=== PATIENT | female | born 1950 | race Caucasian/White ===

== ENCOUNTER 2016-11-30 03:33 | Inpatient (IN) | payer OTHER ==
[~2016-11-30] VITALS: Ht 167.6 cm; Wt 98.0 kg
[~2016-11-30 03:33] MED LIST: ADVAIR HFA 230-12 GM INH; ASPIRIN325 M2 PO; BUTRANS1 EAC2 TOP; COLACE100 M1 PO; DILAUDID2 M1 PO; ESCITALOPRAM OX10 MG PO; HYDROCHLOROTH12.5 M2 PO; MAXALT10 M1 PO; MIRALAX17 G1 PO; MS CONTIN15 M2 PO; ONDANSETRON HCL8 MG PO; OXYCODONE HCL15 M1 PO; ROXICODONE15 M1 PO; TOPAMAX100 M1 PO; XANAX0.25 M1 PO; [UNRECOGNIZED DRUG - OTHER] PO
--- NOTE | 2016-11-30 15:25 | Admission Core Measures ---
Admission Meds I reviewed the following Meds: Current Medications Sig/Jericho Start time Last Medication Dose Stop Time Status Admin Acetaminophen 975 MG ONCE 11/30 0000 NR (Tylenol) 11/30 2358 Alprazolam 0.125 MG DAILY NEEDED PRN 11/30 1500 UNVr (Xanax) 12/07 1459 Budesonide/ 2 PUF BID 11/30 2199 UNVr Formoterol Fumarate (Symbicort) Cefazolin Sodium 2,000 MG ONCE 11/30 0000 NR (Kefzol-Ancef Inj) 11/30 2358 Duloxetine HCl 40 MG DAILY 12/01 1000 UNVr (Cymbalta) Escitalopram Oxalate 10 MG DAILY 12/01 1000 UNVr (Lexapro) Hydrochlorothiazide 12.5 MG DAILY 12/01 1000 UNVr (Hydrodiuril) Oxycodone HCl 10 MG ONCE 11/30 0000 NR (Roxicodone) 11/30 2358 Ropivacaine 500 ML ONCE ONE 11/30 1430 AC (NAROPIN) 12/02 1629 ON-Q Ball 1 BAG Sumatriptan Succinate 25 MG DAILY NEEDED 11/30 1500 UNVr (Imitrex TAB) Topiramate 200 MG BID 11/30 2199 UNVr (Topamax) Acute Coronary Syndrome Inclusion Criteria ACS Diagnosis No Inpatient Core Measures LDL Reminder: If No, please order W/I first 24hr of stay Congestive Heart Failure Inclusion Criteria CHF Diagnosis No Cerebrovascular accident Inclusion Criteria CVA/TIA Diagnosis No Inpatient Core Measures Bedside Swallow Eval Reminder: If BSE failed, place ST order Antithrombotic Reminder: Order Antithrombotic Medication by end of day 2 Antithrombotic Reminder: Document Reason Antithrombotic Not ordered by end of day 2 AFIB/Flutter Reminder: If Present, add to problem list AFIB/Flutter Reminder: Order Anticoag Medication for pts with AFIB/Flutter Atherosclerosis Reminder: If Present, add to problem list LDL Reminder: If No, please order W/I first 24hr of stay PT Order Reminder: If No, please order Venous thromboembolism Inpatient Core Measures VTE Risk Factors: Age > 40, Surgery No [facility] VTE prophylaxis d/t No contraindications No VTE Pharm Prophylaxis d/t No contraindications Inclusion Criteria - Per Current guidelines, there needs to be overlap - treatment for the first 5 days of Warfarin therapy. - Parenteral Anticoagulation (IV or SC) needs to be - given along with Warfarin therapy. VTE Diagnosis No VTE Type NONE VTE Confirmed by (Test) NONE Problem List As ranked by this Provider includes Assessment & Plan 1. Unilateral primary osteoarthritis, right knee HOME MEDS Home Med List Alprazolam (Xanax) 0.25 MG TABLET 0.5 TAB PO PRN ANXIETY (Reported) Buprenorphine (Butrans) 1 EACH PATCH.TDWK 1 PAT TOP QW PAIN (Reported) Duloxetine HCl (Irenka) 40 MG CAPSULE.DR 60 MG PO DAILY MIGRAINES (Reported) Escitalopram Oxalate 10 MG TABLET 1 TAB PO DAILY MIGRAINES (Reported) Fluticasone Propionate/Salme (Advair Hfa 230-21 Mcg Inhaler) 12 GM HFA.AER.AD 1 PUFF INH PRN ASTHMA (Reported) Hydrochlorothiazide 12.5 MG TABLET 1 TAB PO DAILY BP (Reported) Oxycodone HCl 15 MG TABLET 1 TAB PO Q6H PAIN (Reported) Rizatriptan Benzoate (Maxalt) 10 MG TABLET 1 TAB PO PRN MIGRAINES (Reported) Topiramate (Topamax) 100 MG TABLET 2 TAB PO BID MIGRAINE (Reported)
[2016-11-30] MEDS ORDERED: MIRALAX17 G1 PO (15:29)
[2016-11-30] MEDS ORDERED: MS CONTIN30 M1 PO (15:29)
[2016-11-30] MEDS ORDERED: DILAUDID2 M1 PO (15:29)
[2016-11-30] MEDS ORDERED: COLACE100 M1 PO (15:29)
[2016-11-30] MEDS ORDERED: ASPIRIN EC325 M2 PO (15:29)
--- NOTE | 2016-11-30 15:33 | Patient Discharge Instructions ---
Discharge Instructions General Discharge Information You were seen/treated for: Right knee pain related to unilateral primary osteoarthritis You had these procedures: Right total knee replacment Watch for these problems: Increasing pain despite the use of pain medication Increasing redness, warmth or swelling Drainage of any type from incision Inability to bear weight on operative leg Persistent nausea and vomiting Fever greater than 101.5 degrees Do not soak the wound: Yes No bath, but you may shower: Yes Other wound care: Please keep wound clean and dry. No ointments or lotions of any type on or near incision at any time. No exceptions. Your dressing will be changed by your nurse on the second day after your surgery. Daily dry dressing changes are recommended each day thereafter. Do not soak your wound in a bath at any time until otherwise indicated by your surgeon. You may shower, please dry wound immediately after shower with a clean towel. Special Instructions: Aspirin: You are taking this medication to help prevent blood clot formation. Please take with food to protect your stomach lining. Please take as directed. Constipation: Pain medication can cause constipation. Dr. Espino has recommended that you take Colace and miralax each day. You may discontinue this medication if you develop loose stool or diarrhea. If you wish to continue this medication, it is available over the counter. If you are unable to move your bowels after several days, if you are unable to pass gas and are developing bloating, nausea, or vomiting as a result, please contact your doctor. Diet Continue normal diet: Yes Recommended Diet: Regular Activity Full Activity/No Limits: No Activity Self Limited: Yes Pounds, do NOT lift more than: 10 Activity Limited to: Weight bear as tolerated Acute Coronary Syndrome Inclusion Criteria At DC or during hospital stay patient has or had the following: ACS DIAGNOSIS No Discharge Core Measures Meds if any: Prescribed or Continued at Discharge Meds if any: NOT Prescribed or Continued at Discharge Congestive Heart Failure Inclusion Criteria At DC or during hospital stay patient has or had the following: CHF DIAGNOSIS No Discharge Core Measures Meds if any: Prescribed or Continued at Discharge Meds if any: NOT Prescribed or Continued at Discharge Cerebrovascular accident Inclusion Criteria At DC or during hospital stay patient has or had the following: CVA/TIA Diagnosis No Discharge Core Measures Meds if any: Prescribed or Continued at Discharge Meds if any: NOT Prescribed or Continued at Discharge Venous thromboembolism Inclusion Criteria VTE Diagnosis No VTE Type NONE VTE Confirmed by (Test) NONE Discharge Core Measures - Per Current guidelines, there needs to be overlap - treatment for the first 5 days of Warfarin therapy. - If discharged on Warfarin prior to 5 days of - overlap therapy, the patient will need to be - assessed for post discharge needs including - *Post discharge parental anticoagulation - *Warfarin and/or parental anticoagulation education - *Follow up date to check INR post discharge At least 5 days overlap therapy as Inpatient No Meds if any: Prescribed or Continued at Discharge Note: Overlap Therapy is Warfarin and Anticoagulant Meds if any: NOT Prescribed or Continued at Discharge
--- NOTE | 2016-11-30 15:53 | Surgical Discharge Summary ---
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 Daughter What is Your Primary Language? Portuguese Review of Systems: See H&P Hospital Course Course Attending Physician: JOEL JIMENEZ MD Primary Care Physician: SHIRA SIMON,[facility] Course: Patient was admitted to the hospital for an elective total joint replacement. The procedure was tolerated well and patient was transferred to a general surgical floor. Diet was advanced and tolerated, and the patient voided spontaneously. The patient was evaluated and treated by physical therapy. She had complaints of pain to her leg and her medication was reviewed and clarified with her PCP. At the time of hospital discharge, the vital signs were stable, neurovascular status was intact, and pain was controlled with the use of oral pain medications. Allergies: Coded Allergies: Sulfa (Sulfonamide Antibiotics) (Severe, HIVES 11/24/16) furosemide (From LASIX) (Severe, HIVES 11/24/16) ibuprofen (Severe, HIVES 11/24/16) pregabalin (From Lyrica) (Severe, HIVES 11/24/16) codeine (HYPOTENSION 11/24/16) ginseng (BLEEDING 11/24/16) Disposition Summary Disposition Principal Diagnosis: Right knee unilateral primary osteoarthritis Additional Diagnosis: None Discharge Disposition: home health services Discharge Instructions General Discharge Information Code Status: Full Code Patient's Diet: Regular, advance as tolerated Patient's Activity: WBAT Follow-Up Instructions/Appts: Follow up with Dr. Jimenez in 6 weeks from date of surgery. Please call his office to arrange and/or confirm this appointment. Medications at Discharge Discharge Medications: Continue taking these medications: Fluticasone Propionate/Salme (Advair Hfa 230-21 Mcg Inhaler) 12 GM HFA.AER.AD 1 PUFF Inhale through mouth as needed for ASTHMA Comments: Last Taken: 01/28 Time: 10:20 AM Alprazolam (Xanax) 0.25 MG TABLET 0.5 Tablet ORAL as needed for ANXIETY Comments: Last Taken: 01/28 Time: 8:20 AM Buprenorphine (Butrans) 1 EACH PATCH.TDWK 1 Patch On the skin Once a Week Comments: DID NOT RECEIVE Duloxetine HCl (Irenka) 40 MG CAPSULE.DR 60 Milligram ORAL DAILY Comments: Last Taken: 01/28 Time: 10:00 AM Escitalopram Oxalate (Escitalopram Oxalate) 10 MG TABLET 1 Tablet ORAL DAILY Comments: Last Taken: 01/28 Time: 10:20 AM Hydrochlorothiazide (Hydrochlorothiazide) 12.5 MG TABLET 1 Tablet ORAL DAILY Comments: Last Taken: 01/28 Time: 10:20 AM Oxycodone HCl (Oxycodone HCl) 15 MG TABLET 1 Tablet ORAL EVERY 4-6 HOURS NEEDED Comments: Last Taken: 01/28 Time: 10:20 AM Rizatriptan Benzoate (Maxalt) 10 MG TABLET 1 Tablet ORAL as needed for MIGRAINES Comments: DID NOT RECEIVE Topiramate (Topamax) 100 MG TABLET 2 Tablet ORAL TWICE DAILY Comments: Last Taken: 01/28 Time: 11:00 AM Start taking the following new medications: Aspirin (Ecotrin*) 325 MG TABLET.DR 1 Tablet ORAL TWICE DAILY Qty = 60 No Refills Docusate Sodium (Colace) 100 MG CAPSULE 1 Capsule ORAL TWICE DAILY Qty = 14 No Refills Instructions: DISCONTINUE USE IF YOU DEVELOP LOOSE STOOL OR DIARRHEA Polyethylene Glycol 3350 (Miralax) 17 GRAM POWD.PACK 1 Packet ORAL DAILY Qty = 7 No Refills Instructions: dissolve in water, DISCONTINUE USE IF YOU DEVELOP LOOSE STOOL OR DIARRHEA
--- NOTE | 2016-11-30 17:27 | PN- Orthopedic ---
Subjective Subjective: POST-OP NOTE: No complaints. Pain controlled. Still has some numbness of her lower leg. Not yet out of bed. Denies dizziness. No shortness of breath. No chest pains. Objective Vital Signs and I&Os pacu flowsheet reviewed (vss), u/o adequate Physical Exam: General - alert & oriented. sleepy. comfortable Lungs - clear bilaterally. no w/r/r. Cardiac - s1s2. reg. Abdomen - soft. nontender. - shepherd draining clear, yellow urine. Extremities - warm bilaterally. no c/c/e. right leg dressing c/d/i. sensation grossly intact with movement returning in right lower leg. +df/pf Current Medications: Current Medications Sig/Jericho Start time Last Medication Dose Route Stop Time Status Admin Acetaminophen 0 .STK-MED ONE 11/30 1220 DC PO Acetaminophen 975 MG ONCE 11/30 0000 NR PO 11/30 2359 Alprazolam 0.125 MG DAILY NEEDED PRN 11/30 1500 AC PO 12/07 1459 Budesonide/ 2 PUF BID 11/30 2200 AC Formoterol Fumarate INH Cefazolin Sodium 2,000 MG ONCE 11/30 0000 NR IV 11/30 2359 Duloxetine HCl 40 MG DAILY 12/01 1000 AC PO Escitalopram Oxalate 10 MG DAILY 12/01 1000 AC PO Hydrochlorothiazide 12.5 MG DAILY 12/01 1000 AC PO Oxycodone HCl 0 .STK-MED ONE 11/30 1220 DC PO Oxycodone HCl 10 MG ONCE 11/30 0000 NR PO 11/30 2359 Ropivacaine 500 ML ONCE ONE 11/30 1430 AC ON-Q Ball 1 BAG INJ 12/02 1629 Sumatriptan Succinate 25 MG DAILY NEEDED 11/30 1500 AC PO Topiramate 200 MG BID 11/30 2200 AC PO Assessment/Plan Assessment/Plan This 65 year old female with hx asthma, anemia, depression, chronic pain, hx seizures, aneesh (cpap), depression, is POD#0 s/p right total knee replacement for primary osteoarthritis advance diet as tolerated pain control as ordered asa 325mg bid - dvt capo-operative ancef x 2 doses d/c shepherd in am f/u am labs PT eval in am home meds ordered TRC / IS / cpap at night dressing change and on q removal POD#2 will d/w Core Measures/Miscellaneous Venous Thromboembolism VTE Risk Factors: Age > 40, Obesity, Surgery VTE Contraindications: No Contraindications VTE Diagnosis: No VTE Type: NONE VTE Confirmed by (Test): NONE Beta Jeff Is Beta Jeff a Home Med? No Antibiotics Is Patient on Antibiotics? Yes If Yes: prophylaxis
[2016-11-30 18:10] VITALS: BP 120/80
--- NOTE | 2016-11-30 19:02 | Operative Report ---
Operative/Inv Procedure Report Surgery Date: 11/30/16 Name of Procedure: 1. Right total knee replacement 2. Left knee cortisone injection Pre-Operative Diagnosis: Primary bilateral knee DJD Post-Operative Diagnosis: Same Estimated Blood Loss: 50ml to 100ml Surgeon/Personal Injury Law Specialist: TONY SIMON,JOEL Small Anesthesia: block Operative/Procedure Note Note: Description of Procedure: The patient was taken to the operating room and positively identified. After induction of spinal anesthesia and administration of appropriate pre-operative antibiotics, the patient was positioned supine on the operating room table and all bony prominences were well padded. The left knee was prepped sterilely and injected with a mixture of 2 mL of Depo- Medrol and 6 mL of half percent Marcaine. A Band-Aid was placed over the injection site. Attention was then turned to the right lower extremity A well-padded pneumatic tourniquet was placed on the right upper thigh. After performing a surgical timeout, the right lower extremity was prepped and draped in the usual sterile fashion. After exsanguination with Esmarch the tourniquet was inflated to 250mm of mercury. A standard medial parapatellar approach was made to the knee. This was carried down through skin and subcutaneous tissue to the level of the fascia. Meticulous hemostasis was maintained with Bovie electrocautery. The extensor mechanism and patellar retinaculum were opened sharply and the patella was everted. The infrapatellar fat was resected in order to improve exposure. Osteophytes were trimmed from the patella and femoral condyles and the patella was re-everted and tucked laterally. A medial release was performed and the cruciate ligaments were resected. The tibia was then subluxed anteriorly. Utilizing the appropriate extra-medullary guide, the proximal tibia was trimmed perpendicular to the long axis of the tibial shaft. Attention was then turned to the femur. After opening the medullary canal, the distal femoral cut was made in 6 degrees of valgus utilizing the appropriate intra-medullary guide. The extension gap was checked and found to be appropriate. The femur was then sized and the remainder of the femoral cuts were made with a size #4 4-in-1 femoral cutting guide. The flexion gap was checked and found to be symmetric and appropriate. The knee was then trialed with a size #4 femoral component, a size 5 tibial component and a size 13 mm polyethylene insert. The patella was trimmed to accept an A 32 patella. This yielded excellent range of motion, stability and patellar tracking. All trial components were removed and the knee was copiously irrigated with sterile saline. All components were cemented into place with [place] Simplex cement. All the components were of the [employer] Triathlon knee system of the above stated sizes. The knee was again irrigated after cementation. The extensor mechanism and patellar retinaculum were repaired using interrupted #1 vicryl suture. The skin was re-approximated with 2-0 vicryl and closed with melissa. A sterile dressing was applied, the tourniquet was deflated, the patient was awakened and taken to the recovery room in satisfactory condition.
--- NOTE | 2016-11-30 20:31 | NUR ---
1809 PATIENT ARRIVED TO FLOOR ALERT AND ORIENTED X 3. ON ROOM AIR. STATES MILDLY SHORT OF BREATH VITAL SIGNS STABLE. DENIES CHEST PAIN. + PULSES. HX PERIPHERAL NEUROPATHY DSG TO RLE IS C/D/I. TRACE EDEMA TO LLE. ONQ PUMP IN R ADDUCTOR CANAL BED LOW AND LOCKED. CALL LIGHT WITHIN REACH
[2016-11-30 20:44] VITALS: BP 118/68
[2016-11-30 22:48] VITALS: BP 115/78
[2016-12-01 00:24] VITALS: BP 110/62
[2016-12-01 08:12] VITALS: BP 104/58
--- NOTE | 2016-12-01 08:20 | PN- Orthopedic ---
Subjective Subjective: Patient sleeping this morning. She states she is more comfortable after starting the mS 30 twice a day. Her pain is 4 out of 10. No other complaints. She has yet to be up with physical therapy Objective Vital Signs and I&Os Vital Signs Date Time Temp Pulse Resp B/P B/P Pulse O2 O2 Flow FiO2 Mean Ox Delivery Rate 12/01 0812 97.7 59 20 104/58 98 Room Air 12/01 0043 97 Room Air 12/01 0024 98.8 72 20 110/62 96 Room Air 11/30 2248 98.1 79 18 115/78 95 Room Air 11/30 2044 97.7 75 20 118/68 97 Room Air 11/30 1810 Room Air 11/30 1810 97.6 67 18 120/80 95 Room Air 11/30 1810 97.6 67 18 120/80 95 Room Air Intake & Output 12/01 1600 12/01 0800 12/01 0000 11/30 1600 11/30 0800 11/30 0000 Intake Total 200 Output Total 300 Balance -100 Intake, Oral 200 Output, Urine 300 Patient 216 lb Weight Physical Exam: Well-developed well-nourished no apparent distress. HEENT: Atraumatic, extraocular motion intact Neck: Supple, no lymphadenopathy Respiratory: No respiratory distress Extremities: No edema On Q in place RIGHT lower extremity dressing in place, Range of motion is 0-[address] ALPS in place Neurovascularly intact distally Bilateral calves are supple, nontender. Neuro: Alert and oriented x3 Psych: Mood affect normal, normal memory normal judgment. Skin: Warm and dry, no rash on exposed skin Results Last 48 Hours of Labs: Laboratory Tests 12/01 0735 Chemistry Sodium Pending Potassium Pending Chloride Pending Carbon Dioxide Pending Anion Gap Pending BUN Pending Creatinine Pending BUN/Creatinine Ratio Pending Hematology CBC w Diff Pending WBC Pending RBC Pending Hgb Pending Hct Pending MCV Pending MCH Pending RDW Pending Plt Count Pending MPV Pending PUBS MCHC Pending Assessment/Plan Assessment/Plan Postoperative #1 status post right total knee arthroplasty continue current pain regiment Out of bed with physical therapy. DC IV fluids. DC Hills catheter. Perioperative antibiotics. Aspirin 325 mg for DVT prophylaxis Regular diet. Continue regular medications. Dressing change tomorrow. Anticipate discharged to home the earliest tomorrow, likely 2 days Follow-up am labs Core Measures/Miscellaneous Venous Thromboembolism VTE Risk Factors: Age > 40, Obesity, Surgery VTE Contraindications: No Contraindications VTE Diagnosis: No VTE Type: NONE VTE Confirmed by (Test): NONE Beta Jeff Is Beta Jeff a Home Med? No Antibiotics Is Patient on Antibiotics? Yes If Yes: prophylaxis
[2016-12-01 08:44] LABS: ABSOLUTE BASOPHIL COUNT 0 /CUMM (0.0-0.2); ABSOLUTE EOSINOPHIL COUNT 0 /CUMM (0.0-0.7); ABSOLUTE GRANULOCYTE CT 5.5 /CUMM (1.4-6.5); ABSOLUTE MONOCYTE COUNT 0.4 /CUMM (0.10-0.60); BASOPHIL % 0.3 % (0.0-2.0); EOSINOPHIL % 0 % (0-5); GRANULOCYTE % 79.7 % (42.2-75.2); HEMATOCRIT 28.1 % (37-47); MEAN CORPUSCULAR HGB 29.6 PG (27.0-31.0); MEAN CORPUSCULAR HGB CONC 33.6 G/DL (33.0-37.0); MEAN CORPUSCULAR VOLUME 88.3 FL (81.0-99.0); MEAN PLATELET VOLUME 10.4 FL (7.4-10.4); PLATELET COUNT 174 /CUMM (130-400); RBC DISTRIBUTION WIDTH 14.6 % (11.5-14.5); RED BLOOD CELL CT 3.19 /CUMM (4.20-5.40); WHITE BLOOD CELL COUNT 6.9 /CUMM (4.8-10.8)
--- NOTE | 2016-12-01 10:55 | NUR ---
NSG NOTE: THIS RN CALLED INTO ROOM BY PHYSICAL THERAPIST; PATIENT OOB AX1 W/ RW W/ PT; PATIENT BECAME NAUSEAS AND LIGHT HEADED; VITALS OBTAINED- BP 92/60; RR PULSE 60; PATIENT DENIED ZOFRAN; COLD COMPRESS GIVEN; PATIENT IS STABLE IN RECLINER CHAIR; SURGICAL PA HARDIK AWARE; WILL REPORT OFF TO ONCOMING RN TO CONT TO MONITOR
[2016-12-01 14:34] VITALS: BP 108/60
[2016-12-01 18:00] VITALS: BP 120/70
--- NOTE | 2016-12-01 18:52 | NUR ---
ALERT AND ORIENTED X 3. ON ROOM AIR. DENIES SHORTNESS OF BREATH VITAL SIGNS STABLE. DENIES CHEST PAIN. + PULSES. TRACE EDEMA TO BLE DSG TO R KNEE C/D/I. MEDICATION GIVEN FOR DISCOMFORT ASSIST X 1 W /RW. SAFETY MAINTAINED
[2016-12-01 23:50] VITALS: BP 135/66
[2016-12-02 07:43] VITALS: BP 135/66
[2016-12-02 08:21] LABS: ABSOLUTE BASOPHIL COUNT 0 /CUMM (0.0-0.2); ABSOLUTE EOSINOPHIL COUNT 0.1 /CUMM (0.0-0.7); ABSOLUTE GRANULOCYTE CT 5.9 /CUMM (1.4-6.5); ABSOLUTE MONOCYTE COUNT 0.5 /CUMM (0.10-0.60); BASOPHIL % 0.1 % (0.0-2.0); GRANULOCYTE % 79.5 % (42.2-75.2); HEMATOCRIT 29.4 % (37-47); MEAN CORPUSCULAR HGB 29.4 PG (27.0-31.0); MEAN CORPUSCULAR HGB CONC 33.3 G/DL (33.0-37.0); MEAN CORPUSCULAR VOLUME 88.3 FL (81.0-99.0); MEAN PLATELET VOLUME 10.5 FL (7.4-10.4); PLATELET COUNT 176 /CUMM (130-400); RBC DISTRIBUTION WIDTH 15.1 % (11.5-14.5); RED BLOOD CELL CT 3.33 /CUMM (4.20-5.40); WHITE BLOOD CELL COUNT 7.5 /CUMM (4.8-10.8)
--- NOTE | 2016-12-02 08:22 | PN- Orthopedic ---
Subjective Subjective: POD #2 s/p right TKR. Had difficult time overnight due to pain. States she takes up to 30 mg of oxycodone every 4 hours as needed for pain, but states she isn't getting enough here. Denies N/V, F/C, CP/SOB. Worked with PT yesterday, recommending home services. Voiding spontaneously. Objective Vital Signs and I&Os Vital Signs Date Time Temp Pulse Resp B/P B/P Pulse O2 O2 Flow FiO2 Mean Ox Delivery Rate 12/02 0743 98.2 73 20 135/66 99 Room Air 12/02 0000 BIPAP 12/01 2350 98.2 73 20 135/66 99 Room Air 12/01 1800 98.2 88 18 120/70 97 Room Air 12/01 1434 97.7 68 20 108/60 100 Room Air 12/01 1046 Room Air Room Air Intake & Output 12/02 1600 12/02 0800 12/02 0000 12/01 1600 12/01 0800 12/01 0000 Intake Total 240 769 490 2591 200 Output Total 400 500 350 450 300 Balance -160 -260 520 630 -100 Intake, IV 150 600 Intake, Oral 240 240 720 480 200 Number 0 0 Bowel Movements Output, Urine 400 500 350 450 300 Patient 216 lb Weight Physical Exam: Gen: AAOx3 in NAD Cor: S1+S2+ Lungs: CTA freddie Abd: soft, NT, ND, +BS x4 Ext: right lower extremity dressing removed. Trace edema noted from ankle to thigh. No calf tenderness on exam. Negative Montse's sign. Palpable DP pulses freddie. Feet warm. Sensation intact freddie. Incisional dressing removed. Incision intact with melissa. Ecchymosis noted surrounding incision. Minimal tenderness to palpation. Current Medications: Current Medications Sig/Jericho Start time Last Medication Dose Route Stop Time Status Admin Acetaminophen 650 MG Q4P PRN 12/01 0500 AC PO Acetaminophen 1,000 MG Q6 11/30 1800 DC 12/01 IV 12/01 1201 1304 Alprazolam 0.125 MG DAILY NEEDED PRN 11/30 1845 AC PO 12/07 145 Aspirin 325 MG BID 11/30 2199 AC 12/01 PO 2116 Budesonide/ 2 PUF BID 11/30 2199 AC 12/01 Formoterol Fumarate INH 2116 Docusate Sodium 100 MG BID 11/30 2199 AC 12/01 PO 2116 Duloxetine HCl 40 MG DAILY 12/01 1000 DC PO Duloxetine HCl 40 MG DAILY 12/01 1000 AC 12/01 PO 0950 Escitalopram Oxalate 10 MG DAILY 12/01 1000 DC PO Escitalopram Oxalate 10 MG DAILY 12/01 1000 AC PO Hydrochlorothiazide 12.5 MG DAILY 12/01 1000 DC PO Hydrochlorothiazide 12.5 MG DAILY 12/01 1000 AC 12/01 PO 0951 Morphine Sulfate 15 MG BID 12/02 1000 AC PO Morphine Sulfate 30 MG BID 12/01 1000 DC 12/01 PO 2117 Morphine Sulfate 2 MG Q2P PRN 11/30 1845 AC 12/02 IV 0519 Ondansetron HCl 4 MG Q6P PRN 11/30 1845 AC 12/02 IV 0519 Oxycodone HCl 15 MG Q6P PRN 12/01 0500 AC 12/02 PO 0635 Patient Medication 1 ED .STK-MED ONE 12/01 1422 NH Teaching ED 12/01 1423 Polyethylene Glycol 17 GM DAILY 12/01 1000 AC 12/01 PO 0955 Promethazine HCl 12.5 MG Q6P PRN 11/30 1845 AC IV 12/07 1529 Sumatriptan Succinate 25 MG DAILY NEEDED 11/30 1500 AC PO Topiramate 200 MG BID 11/30 2200 AC 12/01 PO 2116 Results Last 48 Hours of Labs: Laboratory Tests 12/02 12/01 0728 0735 Chemistry Sodium (137 - 145 mmol/L) 139 Potassium (3.5 - 5.1 mmol/L) 3.5 Chloride (98 - 107 mmol/L) 106 Carbon Dioxide (22 - 30 mmol/L) 24 Anion Gap (5 - 16) 9 BUN (7 - 17 mg/dL) 12 Creatinine (0.5 - 1.0 mg/dL) 0.6 Estimated GFR (>60 ml/min) > 60 BUN/Creatinine Ratio (7 - 25 %) 20.0 Hematology CBC w Diff NO MAN DIFF REQ NO MAN DIFF REQ WBC (4.8 - 10.8 /CUMM) 7.5 6.9 RBC (4.20 - 5.40 /CUMM) 3.33 L 3.19 L Hgb (12.0 - 16.0 G/DL) 9.8 L 9.5 L Hct (37 - 47 %) 29.4 L 28.1 L MCV (81.0 - 99.0 FL) 88.3 88.3 MCH (27.0 - 31.0 PG) 29.4 29.6 RDW (11.5 - 14.5 %) 15.1 H 14.6 H Plt Count (130 - 400 /CUMM) 176 174 MPV (7.4 - 10.4 FL) 10.5 H 10.4 Gran % (42.2 - 75.2 %) 79.5 H 79.7 H Lymphocytes % (20.5 - 51.1 %) 13.0 L 14.4 L Monocytes % (1.7 - 9.3 %) 6.4 5.6 Eosinophils % (0 - 5 %) 1.0 0 Basophils % (0.0 - 2.0 %) 0.1 0.3 Absolute Granulocytes (1.4 - 6.5 /CUMM) 5.9 5.5 Absolute Lymphocytes (1.2 - 3.4 /CUMM) 1.0 L 1.0 L Absolute Monocytes (0.10 - 0.60 /CUMM) 0.5 0.4 Absolute Eosinophils (0.0 - 0.7 /CUMM) 0.1 0 Absolute Basophils (0.0 - 0.2 /CUMM) 0 0 PUBS MCHC (33.0 - 37.0 G/DL) 33.3 33.6 Assessment/Plan Assessment/Plan A: POD #2 s/p right TKR; AVSS Plan: Continue aspirin BID for DVT prophylaxis. OOB with PT BID. Bowel regimen to continue. Spoke with patient's PCP regarding pain prescriptions- she was prescribed a Butran patch (20 mg transdermal weekly) and is prescribed oxycodone 15 mg tablets 1-2 tab po q4-6h prn pain. Will adjust accordingly. Patient to bring in Butran patch from home. Core Measures/Miscellaneous Venous Thromboembolism VTE Risk Factors: Age > 40, Obesity, Surgery VTE Contraindications: No Contraindications VTE Diagnosis: No VTE Type: NONE VTE Confirmed by (Test): NONE Beta Jeff Is Beta Jeff a Home Med? No Antibiotics Is Patient on Antibiotics? Yes If Yes: prophylaxis
[2016-12-02 15:21] VITALS: BP 134/68
[2016-12-02 23:11] VITALS: BP 130/71
[2016-12-03 07:05] VITALS: BP 124/74
--- NOTE | 2016-12-03 08:22 | PN- Orthopedic ---
Subjective Subjective: No acute events overnight, patients pain is controlled. No fever or flulike illness. She states that she would prefer to go to rehabilitation Objective Vital Signs and I&Os Vital Signs Date Time Temp Pulse Resp B/P B/P Pulse O2 O2 Flow FiO2 Mean Ox Delivery Rate 12/03 0705 98.4 70 20 124/74 98 12/03 0000 BIPAP 12/02 2311 98.4 84 20 130/71 97 12/02 1553 Room Air Room Air 12/02 1521 98.8 84 20 134/68 97 12/02 1246 Room Air Room Air Intake & Output 12/03 1600 12/03 0800 12/03 0000 12/02 1600 12/02 0800 12/02 0000 Intake Total 120 340 240 240 Output Total 2049 400 500 Balance 120 -1710 -160 -260 Intake, Oral 120 340 240 240 Output, Urine 2049 400 500 Physical Exam: Well-developed well-nourished no apparent distress. HEENT: Atraumatic, extraocular motion intact Neck: Supple, no lymphadenopathy Respiratory: No respiratory distress Extremities: No edema RIGHT lower extremity dressing in place, Incision line is clean dry and intact minimal surrounding capo-incisional erythema and induration. Mild joint effusion Range of motion is 0- 45. Neurovascularly intact distally Bilateral calves are supple, nontender. Neuro: Alert and oriented x3 Psych: Mood affect normal, normal memory normal judgment. Skin: Warm and dry, no rash on exposed skin Assessment/Plan Assessment/Plan Postoperative day #3 status post right total knee arthroplasty. Stable for discharge to [facility] facility today for continued physical therapy and rehabilitation. Continue aspirin for DVT prophylaxis. Continue current pain regimen. [place] out in 2 weeks Core Measures/Miscellaneous Venous Thromboembolism VTE Risk Factors: Age > 40, Obesity, Surgery VTE Contraindications: No Contraindications VTE Diagnosis: No VTE Type: NONE VTE Confirmed by (Test): NONE Beta Jeff Is Beta Jeff a Home Med? No Antibiotics Is Patient on Antibiotics? Yes If Yes: prophylaxis
[2016-12-03 10:07] VITALS: BP 124/74
== END 2016-12-03 14:45 | DRG 470 ==
LOC: SDA 03:33 → ENRESERV 15:35 → ENTRNSPT 17:52 → EDTRNSPTSTS 17:58 → 2NB 18:08 → CMPTRNSPT 18:24 → ENPENDDIS 12-03 08:53 → 2NB 12-03 14:45
PROVIDERS: Nurse Practitioner; Physician Assistant Surgical; ADMIT Orthopaedic Surgery
PROC: 3E0U3BZ Introduction of Anesthetic Agent into Joints, Percutaneous Approach (ICD-10-PCS; principal; 2016-11-30)
PROC: 3E0U33Z Introduction of Anti-inflammatory into Joints, Percutaneous Approach (ICD-10-PCS; principal; 2016-11-30)
PROC: 0SRC0J9 Replacement of Right Knee Joint with Synthetic Substitute, Cemented, Open Approach (ICD-10-PCS; principal; 2016-11-30)
PROC: 3E0T3CZ (ICD-10-PCS; 2016-11-30)
DX: M17.0 Bilateral primary osteoarthritis of knee (principal); R56.9 Unspecified convulsions; J45.909 Unspecified asthma, uncomplicated; F41.9 Anxiety disorder, unspecified; D35.02 Benign neoplasm of left adrenal gland; D64.9 Anemia, unspecified; F32.9 Major depressive disorder, single episode, unspecified; E66.9 Obesity, unspecified; Z68.34 Body mass index [BMI] 34.0-34.9, adult; E78.5 Hyperlipidemia, unspecified; G47.33 Obstructive sleep apnea (adult) (pediatric); G89.29 Other chronic pain; Z87.891 Personal history of nicotine dependence
CPT/HCPCS: 2NSBP; 36415; 82436; 97110-GO; 97116-GO; 97161-GP; 97530-GO; C1713; J0131; J0690; J1030; J1100; J2405; J2550; J2795; J3490; J7042